=== PATIENT | female | born 1970 | race Caucasian/White ===

== ENCOUNTER 2019-04-16 17:30 | Emergency (ER) | payer OTHER ==
[~2019-04-16] VITALS: Ht 157.5 cm; Wt 81.0 kg
[~2019-04-16 17:30] MED LIST: IBUP-2030 PO
[2019-04-16] MEDS ORDERED: ASPIRIN 81MG TABLET PO ONE (23:45)
[2019-04-17 00:01] LABS: BASOPHILS % 0.8 % (0.0-2.0); EOSINOPHILS % 2.6 % (0.0-5.0); HEMATOCRIT. 40.2 % (36.0-48.0); HEMOGLOBIN. 13.5 g/dL (12.0-16.0); LYMPHOCYTES % 31.1 % (20.0-50.0); MEAN CORPUSCULAR HEMOGLOBIN 29.6 pg (28.0-32.0); MEAN PLATELET VOLUME 8.4 fl (7.4-10.4); MONOCYTES % 11.5 % (2.0-8.0); PLATELET 268 x1000/uL (130-400); RED BLOOD CELL COUNT 4.56 mill/uL (4.2-5.4); RED CELL DISTRIBUTION WIDTH 14.1 % (11.6-14.6)
[2019-04-17 00:07] LABS: CHLORIDE 108 mEq/L (98-107)
[2019-04-17 04:33] VITALS: BP 134/88
== END 2019-04-17 04:41 | disposition home or self-care (01) ==
LOC: ER 17:30
DX: R07.89 Other chest pain (principal); I10 Essential (primary) hypertension; G43.909 Migraine, unspecified, not intractable, without status migrainosus
CPT/HCPCS: 36415; 71045; 80053; 83880; 84484; 85025; 85379; 93005; 99284; Z7610